=== PATIENT | female | born 1955 | race Caucasian/White ===

== ENCOUNTER 2016-07-29 11:17 | Emergency (ER) | payer OTHER ==
[~2016-07-29] VITALS: Ht 170.2 cm; Wt 56.8 kg
[~2016-07-29 11:17] MED LIST: ARIP30TA5 PO; DIVA500T69 PO; LEVO75 PO; PALI273S IM; QUET200T PO
[2016-07-29 11:18] VITALS: BP 156/75
== END 2016-07-29 12:51 | disposition left against medical advice (07) ==
LOC: EMS 11:18
DX: H92.01 Otalgia, right ear (principal); J44.9 Chronic obstructive pulmonary disease, unspecified; K21.9 Gastro-esophageal reflux disease without esophagitis; E78.00 Pure hypercholesterolemia, unspecified; F17.210 Nicotine dependence, cigarettes, uncomplicated; Z53.21 Procedure and treatment not carried out due to patient leaving prior to being seen by health care provider

== ENCOUNTER 2016-09-13 07:33 | Inpatient (IN) | payer MEDICAID, OTHER ==
[~2016-09-13] VITALS: Ht 171.4 cm; Wt 56.9 kg
[2016-09-13 08:42] LABS: BASOPHILS % (AUTO) 0.8 % (0.0-2.0); HEMATOCRIT 38.5 % (36-46); HEMOGLOBIN 12.7 g/dL (12.0-16.0); LYMPHOCYTES # (AUTO) 1.1 K/uL (1.0-4.8); LYMPHOCYTES % (AUTO) 31.2 % (22.0-44.0); MEAN CORPUSCULAR HEMOGLOBIN 30.3 pg (26.0-34.0); MEAN CORPUSCULAR VOLUME 92 fL (80-100); MONOCYTES # (AUTO) 0.4 K/uL (0.1-1.0); MONOCYTES % (AUTO) 12.7 % (2.0-9.0); NEUTROPHILS # (AUTO) 1.8 K/uL (1.8-7.7); NEUTROPHILS % (AUTO) 53.3 % (40.0-70.0); PLATELET COUNT (AUTO) 269 K/uL (150-450); RED CELL DISTRIBUTION WIDTH 14.3 % (11.5-14.5); WHITE BLOOD COUNT (AUTO) 3.4 K/uL (4.5-11.0)
[2016-09-13] MEDS ORDERED: LORazepam 2 MG TABLET PO ONE (08:45)
[2016-09-13] MEDS ORDERED: HALOPERIDOL 5 MG TABLET PO ONE (08:45)
[2016-09-13] MEDS ORDERED: LORazepam 2 MG TABLET PO PRN (08:45)
[2016-09-13] MEDS ORDERED: ZOLPIDEM TARTRATE 10 MG TABLET PO PRN (08:45)
[2016-09-13 08:53] LABS: ANION GAP 9 mmol/L (8-16); CALCIUM, TOTAL 9.3 mg/dL (8.8-10.5); CARBON DIOXIDE 29 mmol/L (22-29); CHLORIDE 104 mmol/L (98-107); CREATININE 0.64 mg/dL (0.60-1.30); GLOMERULAR FILTR. RATE CALC > 60 mL/min (>60); POTASSIUM 4.3 mmol/L (3.5-5.1); SODIUM SERUM 142 mmol/L (136-145); UREA NITROGEN, BLOOD 4 mg/dL (7-18)
[2016-09-13 08:59] LABS: ALANINE AMINOTRANSFERASE 10 U/L (12-78); ASPARTATE AMINOTRANSFERASE 13 U/L (15-37); BILIRUBIN,TOTAL 0.4 mg/dL (0.1-1.0)
[2016-09-13 10:50] VITALS: BP 137/76
[2016-09-13] MEDS ORDERED: PNEUMOCOCCAL VACCINE POLYVALENT 0.5 ML VIAL [PPSV23] IM ONE (14:30)
[2016-09-13 16:14] VITALS: BP 126/66
[2016-09-13] MEDS: DIVALPROEX SODIUM 500 MG ER TABLET PO SCH (20:58)
[2016-09-13] MEDS: QUEtiapine FUMARATE 200 MG TABLET PO SCH (20:58)
[2016-09-13] MEDS ORDERED: ACETAMINOPHEN 325 MG TABLET PO PRN (21:15)
[2016-09-13] MEDS ORDERED: IBUPROFEN 400 MG TABLET PO PRN (21:15)
[2016-09-14] MEDS: ALBUTEROL SULFATE HFA 90 MCG/PUFF 8 GM INHALER IH PRN (05:05)
[2016-09-14] MEDS: LEVOTHYROXINE SODIUM 75 MCG TABLET PO SCH (06:41)
[2016-09-14 07:22] VITALS: BP 125/65
[2016-09-14 08:34] LABS: HEMOGLOBIN A1C 5.6 % (4.5-6.2)
[2016-09-14 09:00] LABS: CHOL/HDL RATIO 4.9 (3.9-5.7); THYROID STIMULATING HORMONE 3.95 uIU/mL (0.36-3.74)
[2016-09-14] MEDS: OMEPRAZOLE 20 MG CAPSULE PO SCH (09:31)
[2016-09-14] MEDS: ARIPiprazole 15 MG TABLET PO SCH (09:31)
[2016-09-14 09:49] VITALS: BP 101/61
[2016-09-14 16:24] VITALS: BP 104/61
[2016-09-14] MEDS: DIVALPROEX SODIUM 500 MG ER TABLET PO SCH (20:20)
[2016-09-14] MEDS: QUEtiapine FUMARATE 200 MG TABLET PO SCH (20:20)
[2016-09-15 00:33] VITALS: BP 113/74
[2016-09-15] MEDS: LEVOTHYROXINE SODIUM 75 MCG TABLET PO SCH (06:25)
[2016-09-15] MEDS: OMEPRAZOLE 20 MG CAPSULE PO SCH (08:34)
[2016-09-15] MEDS: ARIPiprazole 15 MG TABLET PO SCH (08:34)
[2016-09-15 08:57] VITALS: BP 106/75
[2016-09-15] MEDS: HALOPERIDOL 5 MG TABLET PO PRN (12:05)
[2016-09-15 16:00] VITALS: BP 140/83
[2016-09-15] MEDS: DIVALPROEX SODIUM 500 MG ER TABLET PO SCH (20:21)
[2016-09-15] MEDS: QUEtiapine FUMARATE 200 MG TABLET PO SCH (20:21)
[2016-09-16] MEDS: LEVOTHYROXINE SODIUM 75 MCG TABLET PO SCH (06:04)
[2016-09-16] MEDS: ALBUTEROL SULFATE HFA 90 MCG/PUFF 8 GM INHALER IH PRN (06:13)
[2016-09-16 06:55] VITALS: BP 112/66
[2016-09-16] MEDS: ARIPiprazole 15 MG TABLET PO SCH (08:46)
[2016-09-16] MEDS: OMEPRAZOLE 20 MG CAPSULE PO SCH (08:46)
[2016-09-16 09:08] VITALS: BP 126/73
[2016-09-16] MEDS ORDERED: PALI156D IM (11:59)
[2016-09-16] MEDS: HALOPERIDOL 5 MG TABLET PO PRN (13:01)
[2016-09-16 16:00] VITALS: BP 111/64
[2016-09-16] MEDS: DIVALPROEX SODIUM 500 MG ER TABLET PO SCH (20:50)
[2016-09-16] MEDS: QUEtiapine FUMARATE 200 MG TABLET PO SCH (20:50)
[2016-09-17 05:03] VITALS: BP 106/69
[2016-09-17] MEDS: LEVOTHYROXINE SODIUM 75 MCG TABLET PO SCH (06:13)
[2016-09-17 08:38] VITALS: BP 100/63
[2016-09-17] MEDS: OMEPRAZOLE 20 MG CAPSULE PO SCH (09:16)
[2016-09-17] MEDS: ARIPiprazole 15 MG TABLET PO SCH (09:16)
[2016-09-17] MEDS: HALOPERIDOL 5 MG TABLET PO PRN (12:36)
[2016-09-17 16:11] VITALS: BP 101/65
[2016-09-17] MEDS: QUEtiapine FUMARATE 200 MG TABLET PO SCH (20:16)
[2016-09-17] MEDS: DIVALPROEX SODIUM 500 MG ER TABLET PO SCH (20:16)
[2016-09-18 00:47] VITALS: BP 101/62
[2016-09-18] MEDS: LEVOTHYROXINE SODIUM 75 MCG TABLET PO SCH (06:46)
[2016-09-18 08:29] VITALS: BP 124/69
[2016-09-18] MEDS: OMEPRAZOLE 20 MG CAPSULE PO SCH (08:48)
[2016-09-18] MEDS: ARIPiprazole 15 MG TABLET PO SCH (08:48)
[2016-09-18 16:09] VITALS: BP 103/60
[2016-09-18] MEDS: DIVALPROEX SODIUM 500 MG ER TABLET PO SCH (20:47)
[2016-09-18] MEDS: QUEtiapine FUMARATE 200 MG TABLET PO SCH (20:47)
[2016-09-19 06:16] VITALS: BP 113/72
[2016-09-19] MEDS: LEVOTHYROXINE SODIUM 75 MCG TABLET PO SCH (06:35)
[2016-09-19 08:23] VITALS: BP 101/71
[2016-09-19] MEDS: OMEPRAZOLE 20 MG CAPSULE PO SCH (08:46)
[2016-09-19] MEDS: ARIPiprazole 15 MG TABLET PO SCH (08:46)
[2016-09-19 16:36] VITALS: BP 100/67
[2016-09-19] MEDS: DIVALPROEX SODIUM 500 MG ER TABLET PO SCH (20:21)
[2016-09-19] MEDS: QUEtiapine FUMARATE 200 MG TABLET PO SCH (20:21)
[2016-09-20 00:38] VITALS: BP 110/64
[2016-09-20] MEDS: LEVOTHYROXINE SODIUM 75 MCG TABLET PO SCH (06:19)
[2016-09-20 08:36] VITALS: BP 98/63
[2016-09-20] MEDS: OMEPRAZOLE 20 MG CAPSULE PO SCH (09:24)
[2016-09-20] MEDS: ARIPiprazole 15 MG TABLET PO SCH (09:25)
[2016-09-20 16:36] VITALS: BP 128/70
[2016-09-20] MEDS: DIVALPROEX SODIUM 500 MG ER TABLET PO SCH (20:24)
[2016-09-20] MEDS: QUEtiapine FUMARATE 200 MG TABLET PO SCH (20:24)
[2016-09-21 04:01] VITALS: BP 106/60
[2016-09-21] MEDS: LEVOTHYROXINE SODIUM 75 MCG TABLET PO SCH (06:29)
[2016-09-21 08:36] VITALS: BP 101/61
[2016-09-21] MEDS: OMEPRAZOLE 20 MG CAPSULE PO SCH (09:07)
[2016-09-21] MEDS: ARIPiprazole 15 MG TABLET PO SCH (09:07)
[2016-09-21] MEDS ORDERED: MAGNESIUM HYDROXIDE SUSPENSION 30 ML UDCUP PO PRN (12:00)
[2016-09-21 16:11] VITALS: BP 119/68
[2016-09-21] MEDS: QUEtiapine FUMARATE 200 MG TABLET PO SCH (20:11)
[2016-09-21] MEDS: DIVALPROEX SODIUM 500 MG ER TABLET PO SCH (20:11)
[2016-09-22 00:10] VITALS: BP 102/78
[2016-09-22] MEDS: LEVOTHYROXINE SODIUM 75 MCG TABLET PO SCH (06:10)
[2016-09-22] MEDS: ARIPiprazole 15 MG TABLET PO SCH (09:19)
[2016-09-22] MEDS: OMEPRAZOLE 20 MG CAPSULE PO SCH (09:19)
[2016-09-22 09:29] VITALS: BP 102/62
[2016-09-22 16:22] VITALS: BP 107/66
[2016-09-22] MEDS: DIVALPROEX SODIUM 500 MG ER TABLET PO SCH (20:30)
[2016-09-22] MEDS: QUEtiapine FUMARATE 200 MG TABLET PO SCH (20:31)
[2016-09-23 02:13] VITALS: BP 108/63
[2016-09-23] MEDS: LEVOTHYROXINE SODIUM 75 MCG TABLET PO SCH (06:38)
[2016-09-23 08:31] VITALS: BP 109/67
[2016-09-23] MEDS: OMEPRAZOLE 20 MG CAPSULE PO SCH (09:13)
[2016-09-23] MEDS: ARIPiprazole 15 MG TABLET PO SCH (09:13)
[2016-09-23 16:20] VITALS: BP 106/68
[2016-09-23] MEDS: QUEtiapine FUMARATE 200 MG TABLET PO SCH (21:04)
[2016-09-23] MEDS: DIVALPROEX SODIUM 500 MG ER TABLET PO SCH (21:04)
[2016-09-24 00:33] VITALS: BP 111/62
[2016-09-24] MEDS: LEVOTHYROXINE SODIUM 75 MCG TABLET PO SCH (06:29)
[2016-09-24] MEDS: ARIPiprazole 15 MG TABLET PO SCH (08:30)
[2016-09-24] MEDS: OMEPRAZOLE 20 MG CAPSULE PO SCH (08:30)
[2016-09-24 08:56] VITALS: BP 102/52
[2016-09-24] MEDS ORDERED: OMEP20 PO (10:05)
[2016-09-24] MEDS ORDERED: ALBU8HFA4 IH (10:06)
[2016-09-24] MEDS ORDERED: ARIP30TA5 PO (10:09)
[2016-09-24] MEDS ORDERED: DIVA500T69 PO (10:09)
[2016-09-24] MEDS ORDERED: QUET200T PO (10:10)
== END 2016-09-24 15:03 | disposition home or self-care (01) | DRG 750 ==
LOC: EEVIPCON 07:35 → EMS 07:35 → B2S 09:34
PROVIDERS: ADMIT Psychiatry & Neurology Psychiatry; ATTEND Psychiatry & Neurology Psychiatry
PROC: 3E0234Z Introduction of Serum, Toxoid and Vaccine into Muscle, Percutaneous Approach (ICD-10-PCS; principal; 2016-09-13)
DX: F20.0 Paranoid schizophrenia (principal); J44.9 Chronic obstructive pulmonary disease, unspecified; F32.9 Major depressive disorder, single episode, unspecified; F17.210 Nicotine dependence, cigarettes, uncomplicated; K21.9 Gastro-esophageal reflux disease without esophagitis; F41.9 Anxiety disorder, unspecified; E78.5 Hyperlipidemia, unspecified; E03.9 Hypothyroidism, unspecified; Z71.6 Tobacco abuse counseling; Z23 Encounter for immunization
CPT/HCPCS: 83036; 84443; 87081; 90471; 99285; G0480; J3535

== ENCOUNTER 2019-11-19 16:44 | Inpatient (IN) | payer MEDICAID ==
[~2019-11-19] VITALS: Ht 165.1 cm; Wt 49.9 kg
[~2019-11-19 16:44] MED LIST changes: +ALBU8HFA4 IH; +ARIP30TA PO; -ARIP30TA5 PO; +OMEP20 PO; -PALI273S IM; -QUET200T PO
[2019-11-19] MEDS ORDERED: ZOLPIDEM TARTRATE 10 MG TABLET PO PRN (18:15)
[2019-11-19 18:40] VITALS: BP 114/67
[2019-11-19] MEDS ORDERED: DiphenhydrAMINE HCL 50 MG/ML VIAL ONE (19:52)
[2019-11-19] MEDS ORDERED: LORazepam 2 MG/ML VIAL ONE (19:52)
[2019-11-19] MEDS ORDERED: HALOPERIDOL LACTATE 5 MG/ML VIAL ONE (19:52)
[2019-11-19 19:54] VITALS: BP 116/71
[2019-11-19] MEDS ORDERED: LORazepam 2 MG/ML VIAL IM ONE (20:00)
[2019-11-19] MEDS ORDERED: DiphenhydrAMINE HCL 50 MG/ML VIAL IM ONE (20:00)
[2019-11-19] MEDS ORDERED: HALOPERIDOL LACTATE 5 MG/ML VIAL IM ONE (20:00)
[2019-11-19 20:15] VITALS: BP 139/91
[2019-11-19 21:05] VITALS: BP 135/75
[2019-11-19] MEDS ORDERED: -PHARMACY VACCINE NOTE- MISC ONE (22:00)
[2019-11-20 05:12] VITALS: BP 132/63
[2019-11-20] MEDS ORDERED: ALBUTEROL SULFATE HFA 90 MCG/PUFF 8 GM INHALER IH PRN (09:15)
[2019-11-20] MEDS ORDERED: CloNIDine HCL 0.1 MG TABLET PO PRN (09:15)
[2019-11-20] MEDS ORDERED: ACETAMINOPHEN 325 MG TABLET PO PRN (09:15)
[2019-11-20] MEDS ORDERED: LOPERAMIDE HCL 2 MG CAPSULE PO PRN (09:15)
[2019-11-20] MEDS ORDERED: NICOTINE 14 MG/24 HOUR PATCH TD PRN (09:15)
[2019-11-20] MEDS ORDERED: IBUPROFEN 400 MG TABLET PO PRN (09:15)
[2019-11-20] MEDS ORDERED: PETROLATUM,WHITE 28 GM JELLY TP PRN (09:15)
[2019-11-20] MEDS ORDERED: GuaiFENesin/D-METHORPHAN [SUGAR-FREE] 200-20MG/10 ML SYRUP UDCUP PO PRN (09:15)
[2019-11-20] MEDS ORDERED: MAGNESIUM HYDROXIDE SUSPENSION 30 ML UDCUP PO PRN (09:15)
[2019-11-20] MEDS ORDERED: ONDANSETRON HCL 4 MG TABLET PO PRN (09:15)
[2019-11-20] MEDS ORDERED: DOCUSATE SODIUM 100 MG CAPSULE PO PRN (09:15)
[2019-11-20] MEDS ORDERED: MAG HYDROX/AL HYDROX/SIMETH ES 30 ML SUSPENSION UDCUP PO PRN (09:15)
[2019-11-20 16:00] VITALS: BP 122/85
[2019-11-20] MEDS: DIVALPROEX SODIUM 500 MG DR TABLET PO SCH (16:47)
[2019-11-21 05:09] VITALS: BP 120/68
[2019-11-21] MEDS: LEVOTHYROXINE SODIUM 75 MCG TABLET PO SCH (06:01)
[2019-11-21 08:21] VITALS: BP 121/82
[2019-11-21 09:04] LABS: BASOPHILS % (AUTO) 0.5 % (0.0-2.0); EOSINOPHILS % (AUTO) 1.3 % (1.0-6.0); HEMATOCRIT 39.7 % (36-46); HEMOGLOBIN 13.1 g/dL (12.0-16.0); LYMPHOCYTES # (AUTO) 1.2 K/uL (1.0-4.8); LYMPHOCYTES % (AUTO) 40.3 % (22.0-44.0); MEAN CORPUSCULAR HEMOGLOBIN 30.9 pg (26.0-34.0); MEAN CORPUSCULAR VOLUME 94 fL (80-100); MONOCYTES # (AUTO) 0.3 K/uL (0.1-1.0); MONOCYTES % (AUTO) 9.7 % (2.0-9.0); NEUTROPHILS # (AUTO) 1.5 K/uL (1.8-7.7); NEUTROPHILS % (AUTO) 48.2 % (40.0-70.0); PLATELET COUNT (AUTO) 247 K/uL (150-450); RED BLOOD CELL COUNT(AUTO) 4.24 MIL/uL (4.00-5.20)
[2019-11-21] MEDS: DIVALPROEX SODIUM 500 MG DR TABLET PO SCH ×2 (09:05→16:44)
[2019-11-21] MEDS: OMEPRAZOLE 20 MG CAPSULE PO SCH (09:05)
[2019-11-21 09:43] LABS: ALANINE AMINOTRANSFERASE 11 U/L (12-78); ALBUMIN 3.2 g/dL (3.4-5.0); ALKALINE PHOSPHATASE 61 U/L (46-116); ANION GAP 10 mmol/L (8-16); ASPARTATE AMINOTRANSFERASE 19 U/L (15-37); BILIRUBIN,TOTAL 0.5 mg/dL (0.1-1.0); CALCIUM, TOTAL 8.6 mg/dL (8.8-10.5); CARBON DIOXIDE 28 mmol/L (22-29); CHLORIDE 102 mmol/L (98-107); CHOL/HDL RATIO 3.6 (3.9-5.7); CHOLESTEROL 173 mg/dL (131-200); CREATININE 0.65 mg/dL (0.60-1.30); FREE T4 (FREE THYROXINE) 1.23 ng/dL (0.76-1.46); GLOMERULAR FILTR. RATE CALC > 60 mL/min (>60); GLUCOSE,RANDOM 78 mg/dL (70-110); HDL CHOLESTEROL 48 mg/dL (40-60); LDL CHOL (CALC.) 111 mg/dL (0-130); SODIUM SERUM 140 mmol/L (136-145); THYROID STIMULATING HORMONE 5.22 uIU/mL (0.36-3.74); TOTAL PROTEIN, SERUM 6.8 g/dL (6.4-8.2); TRIGLYCERIDES 71 mg/dL (15-150); UREA NITROGEN, BLOOD 9 mg/dL (7-18)
[2019-11-21 13:51] LABS: HEMOGLOBIN A1C 5.8 % (3.8-5.6)
[2019-11-21 16:30] VITALS: BP 124/71
[2019-11-22] VITALS: BP 133/72
[2019-11-22] MEDS: LEVOTHYROXINE SODIUM 75 MCG TABLET PO SCH (06:42)
[2019-11-22 08:15] VITALS: BP 105/82
[2019-11-22] MEDS: DIVALPROEX SODIUM 500 MG DR TABLET PO SCH ×2 (08:34→16:08)
[2019-11-22] MEDS: OMEPRAZOLE 20 MG CAPSULE PO SCH (08:34)
[2019-11-22] MEDS: HALOPERIDOL 5 MG TABLET PO PRN (15:54)
[2019-11-22] MEDS: LORazepam 2 MG TABLET PO PRN (15:54)
[2019-11-22 16:27] VITALS: BP 126/74
[2019-11-23] VITALS: BP 93/72
[2019-11-23] MEDS: LEVOTHYROXINE SODIUM 75 MCG TABLET PO SCH (06:42)
[2019-11-23 08:16] VITALS: BP 101/56
[2019-11-23] MEDS: DIVALPROEX SODIUM 500 MG DR TABLET PO SCH ×2 (08:18→16:25)
[2019-11-23] MEDS: OMEPRAZOLE 20 MG CAPSULE PO SCH (08:18)
[2019-11-23 16:26] VITALS: BP 118/74
[2019-11-24 05:30] VITALS: BP 131/49
[2019-11-24] MEDS: LEVOTHYROXINE SODIUM 75 MCG TABLET PO SCH (06:13)
[2019-11-24 07:16] LABS: MAGNESIUM 1.9 mg/dL (1.80-2.40); PHOSPHORUS 3.5 mg/dL (2.5-4.9)
[2019-11-24 08:11] VITALS: BP 102/74
[2019-11-24 08:15] VITALS: BP 102/74
[2019-11-24] MEDS: OMEPRAZOLE 20 MG CAPSULE PO SCH (09:12)
[2019-11-24] MEDS: DIVALPROEX SODIUM 500 MG DR TABLET PO SCH ×2 (09:12→17:46)
[2019-11-24] MEDS: HALOPERIDOL 5 MG TABLET PO PRN (16:30)
[2019-11-24] MEDS: LORazepam 2 MG TABLET PO PRN (16:31)
[2019-11-24 17:51] VITALS: BP 128/65
[2019-11-25] VITALS: BP 95/54
[2019-11-25] MEDS: LEVOTHYROXINE SODIUM 75 MCG TABLET PO SCH (06:15)
[2019-11-25 08:15] VITALS: BP 104/54
[2019-11-25] MEDS: OMEPRAZOLE 20 MG CAPSULE PO SCH (08:30)
[2019-11-25] MEDS: DIVALPROEX SODIUM 500 MG DR TABLET PO SCH (08:30)
[2019-11-25] MEDS ORDERED: DIVA-112 PO (12:40)
== END 2019-11-25 13:45 | disposition home or self-care (01) | DRG 750 ==
LOC: B2S 18:17 → B3A 20:33
PROVIDERS: ADMIT Psychiatry & Neurology Psychiatry; ATTEND Psychiatry & Neurology Psychiatry
DX: F20.0 Paranoid schizophrenia (principal); E03.9 Hypothyroidism, unspecified; E78.5 Hyperlipidemia, unspecified; F10.10 Alcohol abuse, uncomplicated; J44.9 Chronic obstructive pulmonary disease, unspecified; F17.210 Nicotine dependence, cigarettes, uncomplicated; K21.9 Gastro-esophageal reflux disease without esophagitis
CPT/HCPCS: 83036; 83735; 84100; 84439; 84443; J1200; J1630; J2060

== ENCOUNTER 2021-02-27 13:02 | Inpatient (IN) | payer MEDICAID, OTHER ==
[~2021-02-27] VITALS: Ht 162.6 cm; Wt 48.8 kg
[~2021-02-27 13:02] MED LIST changes: -ALBU8HFA4 IH; -ARIP30TA PO; +DIVA-112 PO; -DIVA500T69 PO
[2021-02-27 13:55] LABS: BASOPHILS % (AUTO) 0.3 % (0.0-2.0); EOSINOPHILS % (AUTO) 0.5 % (1.0-6.0); HEMATOCRIT 36.5 % (36-46); HEMOGLOBIN 12.3 g/dL (12.0-16.0); LYMPHOCYTES # (AUTO) 1.1 K/uL (1.0-4.8); LYMPHOCYTES % (AUTO) 26.1 % (22.0-44.0); MEAN CORPUSCULAR HEMOGLOBIN 32.1 pg (26.0-34.0); MEAN CORPUSCULAR HGB CONC 33.7 G/dL (31.0-37.0); MEAN CORPUSCULAR VOLUME 95 fL (80-100); MONOCYTES # (AUTO) 0.4 K/uL (0.1-1.0); MONOCYTES % (AUTO) 10.1 % (2.0-9.0); NEUTROPHILS # (AUTO) 2.6 K/uL (1.8-7.7); PLATELET COUNT (AUTO) 251 K/uL (150-450); RED BLOOD CELL COUNT(AUTO) 3.84 MIL/uL (4.00-5.20)
[2021-02-27 14:03] LABS: ANION GAP 9 mmol/L (8-16); CALCIUM, TOTAL 8.7 mg/dL (8.8-10.5); CARBON DIOXIDE 29 mmol/L (22-29); CHLORIDE 103 mmol/L (98-107); CREATININE 0.64 mg/dL (0.60-1.30); GLOMERULAR FILTR. RATE CALC > 60 mL/min (>60); GLUCOSE,RANDOM 101 mg/dL (70-110); POTASSIUM 3.9 mmol/L (3.5-5.1); SODIUM SERUM 141 mmol/L (136-145); UREA NITROGEN, BLOOD 5 mg/dL (7-18)
[2021-02-27 14:10] LABS: ALANINE AMINOTRANSFERASE 8 U/L (12-78); ALBUMIN 3.7 g/dL (3.4-5.0); ASPARTATE AMINOTRANSFERASE 18 U/L (15-37); BILIRUBIN,TOTAL 0.5 mg/dL (0.1-1.0); TOTAL PROTEIN, SERUM 7.8 g/dL (6.4-8.2); VALPROIC ACID 13 mcg/mL (50-100)
[2021-02-27 14:24] LABS: ALKALINE PHOSPHATASE 66 U/L (46-116)
[2021-02-27 16:14] LABS: APPEARANCE,URINE CLOUDY (CLEAR); BILIRUBIN,URINE NEGATIVE (NEGATIVE); GLUCOSE, URINE (UA) NEGATIVE (NEGATIVE); KETONES,URINE NEGATIVE (NEGATIVE); LEUKOCYTE ESTERASE ,URINE SMALL (NEGATIVE); NITRATE,URINE POSITIVE (NEGATIVE); OCCULT BLOOD,URINE NEGATIVE (NEGATIVE); PROTEIN,URINE NEGATIVE (NEGATIVE); UROBILINOGEN,URINE 0.2 mg/dL (<=1.0)
[2021-02-27 16:31] LABS: AMPHET/METH SCREEN,URINE NEGATIVE (NEGATIVE); BARBITURATE SCREEN, URINE NEGATIVE (NEGATIVE); BENZODIAZEPINES SCREEN,URINE NEGATIVE (NEGATIVE); CANNABINOID SCREEN,URINE NEGATIVE (NEGATIVE); COCAINE SCREEN,URINE NEGATIVE (NEGATIVE); METHADONE SCREEN, URINE NEGATIVE (NEGATIVE); OPIATE SCREEN,URINE NEGATIVE (NEGATIVE)
[2021-02-27 16:37] LABS: PHENCYCLIDINE SCREEN,URINE NEGATIVE (NEGATIVE)
[2021-02-27 17:08] LABS: AMORPHOUS SEDIMENT,UR Few /LPF (None Seen); BACTERIA,URINE Moderate /HPF (None Seen); RBC,URINE 0-2 /HPF (0-2); SQUAMOUS EPITHELIAL CELL,UR Few /LPF (None Seen)
[2021-02-27] MEDS ORDERED: ZOLPIDEM TARTRATE 10 MG TABLET PO PRN (17:15)
[2021-02-27] MEDS: HALOPERIDOL 5 MG TABLET PO PRN (17:40)
[2021-02-27] MEDS: NITROFURANTOIN/NITROFURAN MAC 100 MG CAPSULE [MACROBID] PO SCH (17:40)
[2021-02-27] MEDS: LORazepam 2 MG TABLET PO PRN (17:40)
[2021-02-27 19:01] LABS: COVID AG,FIA SOURCE NASOPHARYNGEAL
[2021-02-28 08:05] LABS: CHOL/HDL RATIO 3.7 (3.9-5.7); CHOLESTEROL 168 mg/dL (131-200); HDL CHOLESTEROL 46 mg/dL (40-60); LDL CHOL (CALC.) 111 mg/dL (0-130); TRIGLYCERIDES 56 mg/dL (15-150)
[2021-02-28] MEDS: NITROFURANTOIN/NITROFURAN MAC 100 MG CAPSULE [MACROBID] PO SCH (08:08)
[2021-02-28] MEDS: LORazepam 2 MG TABLET PO PRN (22:20)
[2021-02-28] MEDS: HALOPERIDOL 5 MG TABLET PO PRN (22:20)
[2021-03-01] MEDS ORDERED: -PHARMACY VACCINE NOTE- MISC ONE (00:15)
[2021-03-01] MEDS ORDERED: PETROLATUM,WHITE 28 GM JELLY TP PRN (07:45)
[2021-03-01] MEDS: LEVOTHYROXINE SODIUM 75 MCG TABLET PO SCH (07:45)
[2021-03-01] MEDS ORDERED: CloNIDine HCL 0.1 MG TABLET PO PRN (07:45)
[2021-03-01] MEDS ORDERED: MAGNESIUM HYDROXIDE SUSPENSION 30 ML UDCUP PO PRN (07:45)
[2021-03-01] MEDS ORDERED: BENZOCAINE/MENTHOL LOZENGE PO PRN (07:45)
[2021-03-01] MEDS ORDERED: OMEPRAZOLE 20 MG CAPSULE PO PRN (07:45)
[2021-03-01] MEDS ORDERED: BACITRACIN 28 GM OINTMENT TP PRN (07:45)
[2021-03-01] MEDS ORDERED: MAG HYDROX/AL HYDROX/SIMETH ES 30 ML SUSPENSION UDCUP PO PRN (07:45)
[2021-03-01] MEDS ORDERED: ONDANSETRON HCL 4 MG TABLET PO PRN (07:45)
[2021-03-01] MEDS ORDERED: ALBUTEROL SULFATE HFA 90 MCG/PUFF 8 GM INHALER IH PRN (07:45)
[2021-03-01] MEDS ORDERED: LOPERAMIDE HCL 2 MG CAPSULE PO PRN (07:45)
[2021-03-01] MEDS ORDERED: DOCUSATE SODIUM 100 MG CAPSULE PO PRN (07:45)
[2021-03-01] MEDS ORDERED: ACETAMINOPHEN 325 MG TABLET PO PRN (07:45)
[2021-03-01 08:31] VITALS: BP 116/71
[2021-03-01] MEDS: NITROFURANTOIN/NITROFURAN MAC 100 MG CAPSULE [MACROBID] PO SCH ×2 (09:05→16:06)
[2021-03-01] MEDS: RisperiDONE 2 MG TABLET PO SCH (16:06)
[2021-03-01] MEDS: DIVALPROEX SODIUM 500 MG DR TABLET PO SCH (16:06)
[2021-03-02] MEDS: IBUPROFEN 600 MG TABLET PO PRN (00:39)
[2021-03-02 00:41] VITALS: BP 110/72
[2021-03-02] MEDS: LEVOTHYROXINE SODIUM 75 MCG TABLET PO SCH (06:23)
[2021-03-02 08:13] VITALS: BP 144/77
[2021-03-02 08:27] LABS: MAGNESIUM 1.1 mg/dL (1.80-2.40); PHOSPHORUS 3.9 mg/dL (2.5-4.9)
[2021-03-02] MEDS: NITROFURANTOIN/NITROFURAN MAC 100 MG CAPSULE [MACROBID] PO SCH ×2 (08:47→16:13)
[2021-03-02] MEDS: THIAMINE 100 MG TABLET PO SCH (08:47)
[2021-03-02] MEDS: RisperiDONE 2 MG TABLET PO SCH ×2 (08:47→16:13)
[2021-03-02] MEDS: MULTIVITAMINS WITH MINERALS, THERAPEUTIC TABLET PO SCH (08:47)
[2021-03-02] MEDS: FOLIC ACID 1 MG TABLET PO SCH (08:47)
[2021-03-02] MEDS: DIVALPROEX SODIUM 500 MG DR TABLET PO SCH ×2 (08:47→16:13)
[2021-03-02 16:06] VITALS: BP 133/75
[2021-03-03 00:33] VITALS: BP 118/73
[2021-03-03] MEDS: LEVOTHYROXINE SODIUM 75 MCG TABLET PO SCH (06:53)
[2021-03-03 08:21] VITALS: BP 116/70
[2021-03-03] MEDS: FOLIC ACID 1 MG TABLET PO SCH (08:28)
[2021-03-03] MEDS: NITROFURANTOIN/NITROFURAN MAC 100 MG CAPSULE [MACROBID] PO SCH ×2 (08:28→16:48)
[2021-03-03] MEDS: THIAMINE 100 MG TABLET PO SCH (08:28)
[2021-03-03] MEDS: DIVALPROEX SODIUM 500 MG DR TABLET PO SCH ×2 (08:28→16:47)
[2021-03-03] MEDS: MULTIVITAMINS WITH MINERALS, THERAPEUTIC TABLET PO SCH (08:28)
[2021-03-03] MEDS: RisperiDONE 2 MG TABLET PO SCH ×2 (08:28→16:48)
[2021-03-03] MEDS ORDERED: MAGNESIUM OXIDE 400 MG TABLET PO ONE (09:00)
[2021-03-03] MEDS ORDERED: INSULIN LISPRO 100 UNITS/ML SQ ONE (09:15)
[2021-03-03] MEDS ORDERED: INSULIN GLARGINE,HUM.REC.ANLOG 100 UNITS/ML SQ SCH (09:15)
[2021-03-03 16:18] VITALS: BP 136/69
[2021-03-03] MEDS ORDERED: CIPROFLOXACIN HCL 250 MG TABLET PO SCH (20:45)
[2021-03-04 01:42] VITALS: BP 130/78
[2021-03-04] MEDS: LEVOTHYROXINE SODIUM 75 MCG TABLET PO SCH (06:20)
[2021-03-04 08:05] VITALS: BP 122/70
[2021-03-04] MEDS: DIVALPROEX SODIUM 500 MG DR TABLET PO SCH ×2 (08:30→16:44)
[2021-03-04] MEDS: FOLIC ACID 1 MG TABLET PO SCH (08:30)
[2021-03-04] MEDS: CIPROFLOXACIN HCL 250 MG TABLET PO SCH ×2 (08:30→16:44)
[2021-03-04] MEDS: MULTIVITAMINS WITH MINERALS, THERAPEUTIC TABLET PO SCH (08:30)
[2021-03-04] MEDS: THIAMINE 100 MG TABLET PO SCH (08:31)
[2021-03-04] MEDS: RisperiDONE 2 MG TABLET PO SCH ×2 (08:31→16:44)
[2021-03-04 10:58] LABS: MAGNESIUM 1.8 mg/dL (1.80-2.40); PHOSPHORUS 4.3 mg/dL (2.5-4.9)
[2021-03-04] MEDS: LORazepam 2 MG TABLET PO PRN (11:35)
[2021-03-04 16:08] VITALS: BP 129/79
[2021-03-05 04:51] VITALS: BP 120/72
[2021-03-05] MEDS: LEVOTHYROXINE SODIUM 75 MCG TABLET PO SCH (06:35)
[2021-03-05] MEDS: THIAMINE 100 MG TABLET PO SCH (08:51)
[2021-03-05] MEDS: FOLIC ACID 1 MG TABLET PO SCH (08:51)
[2021-03-05] MEDS: MULTIVITAMINS WITH MINERALS, THERAPEUTIC TABLET PO SCH (08:51)
[2021-03-05] MEDS: RisperiDONE 2 MG TABLET PO SCH ×2 (08:51→16:15)
[2021-03-05] MEDS: CIPROFLOXACIN HCL 250 MG TABLET PO SCH ×2 (08:51→16:15)
[2021-03-05] MEDS: DIVALPROEX SODIUM 500 MG DR TABLET PO SCH ×2 (08:51→16:15)
[2021-03-05 09:01] VITALS: BP 112/61
[2021-03-05 16:08] VITALS: BP 122/61
[2021-03-06 05:06] VITALS: BP 119/76
[2021-03-06] MEDS: LEVOTHYROXINE SODIUM 75 MCG TABLET PO SCH (06:16)
[2021-03-06 08:24] VITALS: BP 110/61
[2021-03-06] MEDS: RisperiDONE 2 MG TABLET PO SCH ×2 (08:47→16:18)
[2021-03-06] MEDS: FOLIC ACID 1 MG TABLET PO SCH (08:47)
[2021-03-06] MEDS: MULTIVITAMINS WITH MINERALS, THERAPEUTIC TABLET PO SCH (08:47)
[2021-03-06] MEDS: DIVALPROEX SODIUM 500 MG DR TABLET PO SCH ×2 (08:47→16:18)
[2021-03-06] MEDS: THIAMINE 100 MG TABLET PO SCH (08:47)
[2021-03-06] MEDS: CIPROFLOXACIN HCL 250 MG TABLET PO SCH ×2 (08:47→16:18)
[2021-03-06 16:05] VITALS: BP 148/95
[2021-03-07 00:51] VITALS: BP 128/76
[2021-03-07] MEDS: LEVOTHYROXINE SODIUM 75 MCG TABLET PO SCH (06:22)
[2021-03-07] MEDS: DIVALPROEX SODIUM 500 MG DR TABLET PO SCH ×2 (08:16→16:46)
[2021-03-07] MEDS: FOLIC ACID 1 MG TABLET PO SCH (08:16)
[2021-03-07] MEDS: RisperiDONE 2 MG TABLET PO SCH ×2 (08:16→16:46)
[2021-03-07] MEDS: THIAMINE 100 MG TABLET PO SCH (08:16)
[2021-03-07] MEDS: MULTIVITAMINS WITH MINERALS, THERAPEUTIC TABLET PO SCH (08:16)
[2021-03-07 08:34] VITALS: BP 119/74
[2021-03-07 16:16] VITALS: BP 108/63
[2021-03-08 00:29] VITALS: BP 102/76
[2021-03-08] MEDS: LEVOTHYROXINE SODIUM 75 MCG TABLET PO SCH (06:40)
[2021-03-08] MEDS: FOLIC ACID 1 MG TABLET PO SCH (08:04)
[2021-03-08] MEDS: RisperiDONE 2 MG TABLET PO SCH ×2 (08:04→16:02)
[2021-03-08] MEDS: MULTIVITAMINS WITH MINERALS, THERAPEUTIC TABLET PO SCH (08:04)
[2021-03-08] MEDS: DIVALPROEX SODIUM 500 MG DR TABLET PO SCH ×2 (08:04→16:02)
[2021-03-08] MEDS: THIAMINE 100 MG TABLET PO SCH (08:04)
[2021-03-08 08:36] VITALS: BP 100/64
[2021-03-08 16:06] VITALS: BP 113/62
[2021-03-08] MEDS: LORazepam 2 MG TABLET PO PRN (17:24)
[2021-03-08] MEDS: HALOPERIDOL 5 MG TABLET PO PRN (17:24)
[2021-03-09 00:49] VITALS: BP 110/72
[2021-03-09] MEDS: LEVOTHYROXINE SODIUM 75 MCG TABLET PO SCH (06:17)
[2021-03-09 08:14] VITALS: BP 114/74
[2021-03-09] MEDS: RisperiDONE 2 MG TABLET PO SCH ×2 (08:27→17:12)
[2021-03-09] MEDS: DIVALPROEX SODIUM 500 MG DR TABLET PO SCH ×2 (08:27→17:12)
[2021-03-09] MEDS: FOLIC ACID 1 MG TABLET PO SCH (08:27)
[2021-03-09] MEDS: MULTIVITAMINS WITH MINERALS, THERAPEUTIC TABLET PO SCH (08:27)
[2021-03-09] MEDS: THIAMINE 100 MG TABLET PO SCH (08:28)
[2021-03-09 16:27] VITALS: BP_SYST 101; BP_SYST 127; BP_DIAS 68; BP_DIAS 76
[2021-03-10 00:49] VITALS: BP 107/62
[2021-03-10] MEDS: LEVOTHYROXINE SODIUM 75 MCG TABLET PO SCH (06:07)
[2021-03-10 08:23] VITALS: BP 117/59
[2021-03-10] MEDS: THIAMINE 100 MG TABLET PO SCH (08:31)
[2021-03-10] MEDS: DIVALPROEX SODIUM 500 MG DR TABLET PO SCH ×2 (08:31→16:48)
[2021-03-10] MEDS: MULTIVITAMINS WITH MINERALS, THERAPEUTIC TABLET PO SCH (08:31)
[2021-03-10] MEDS: FOLIC ACID 1 MG TABLET PO SCH (08:31)
[2021-03-10] MEDS: RisperiDONE 2 MG TABLET PO SCH ×2 (08:31→16:48)
[2021-03-10 16:14] VITALS: BP 123/72
[2021-03-11 01:54] VITALS: BP 114/71
[2021-03-11] MEDS: LEVOTHYROXINE SODIUM 75 MCG TABLET PO SCH (06:24)
[2021-03-11] MEDS: MULTIVITAMINS WITH MINERALS, THERAPEUTIC TABLET PO SCH (08:06)
[2021-03-11] MEDS: DIVALPROEX SODIUM 500 MG DR TABLET PO SCH ×2 (08:06→16:05)
[2021-03-11] MEDS: THIAMINE 100 MG TABLET PO SCH (08:06)
[2021-03-11] MEDS: RisperiDONE 2 MG TABLET PO SCH ×2 (08:06→16:05)
[2021-03-11] MEDS: FOLIC ACID 1 MG TABLET PO SCH (08:07)
[2021-03-11 08:38] VITALS: BP 102/59
[2021-03-11 16:21] VITALS: BP 103/68
[2021-03-12 00:07] VITALS: BP 100/66
[2021-03-12] MEDS: LEVOTHYROXINE SODIUM 75 MCG TABLET PO SCH (06:32)
[2021-03-12] MEDS: DIVALPROEX SODIUM 500 MG DR TABLET PO SCH ×2 (08:36→16:20)
[2021-03-12] MEDS: RisperiDONE 2 MG TABLET PO SCH ×2 (08:36→16:20)
[2021-03-12] MEDS: MULTIVITAMINS WITH MINERALS, THERAPEUTIC TABLET PO SCH (08:36)
[2021-03-12 08:45] VITALS: BP 102/66
[2021-03-12] MEDS: HALOPERIDOL 5 MG TABLET PO PRN (10:52)
[2021-03-12] MEDS ORDERED: HALOPERIDOL LACTATE 5 MG/ML VIAL IM ONE (11:30)
[2021-03-12] MEDS ORDERED: DiphenhydrAMINE HCL 50 MG/ML VIAL IM ONE (11:30)
[2021-03-12] MEDS ORDERED: LORazepam 2 MG/ML VIAL IM ONE (11:30)
[2021-03-13] VITALS: BP 100/63
[2021-03-13] MEDS: LEVOTHYROXINE SODIUM 75 MCG TABLET PO SCH (06:52)
[2021-03-13] MEDS: MULTIVITAMINS WITH MINERALS, THERAPEUTIC TABLET PO SCH (08:15)
[2021-03-13] MEDS: RisperiDONE 2 MG TABLET PO SCH ×2 (08:15→17:02)
[2021-03-13] MEDS: DIVALPROEX SODIUM 500 MG DR TABLET PO SCH ×2 (08:15→17:02)
[2021-03-13 08:24] VITALS: BP 110/59
[2021-03-13 16:15] VITALS: BP 123/80
[2021-03-13] MEDS: HALOPERIDOL 5 MG TABLET PO PRN (18:50)
[2021-03-13] MEDS: IBUPROFEN 600 MG TABLET PO PRN (18:50)
[2021-03-14 00:27] VITALS: BP 114/76
[2021-03-14] MEDS: LEVOTHYROXINE SODIUM 75 MCG TABLET PO SCH (06:25)
[2021-03-14 08:39] VITALS: BP 120/74
[2021-03-14] MEDS: RisperiDONE 2 MG TABLET PO SCH ×2 (08:46→16:02)
[2021-03-14] MEDS: DIVALPROEX SODIUM 500 MG DR TABLET PO SCH ×2 (08:46→16:02)
[2021-03-14] MEDS: MULTIVITAMINS WITH MINERALS, THERAPEUTIC TABLET PO SCH (09:13)
[2021-03-14] MEDS: HALOPERIDOL 5 MG TABLET PO PRN (16:02)
[2021-03-14 16:23] VITALS: BP 129/61
[2021-03-15 00:19] VITALS: BP 117/68
[2021-03-15] MEDS: LEVOTHYROXINE SODIUM 75 MCG TABLET PO SCH (06:30)
[2021-03-15 08:24] VITALS: BP 117/65
[2021-03-15] MEDS: MULTIVITAMINS WITH MINERALS, THERAPEUTIC TABLET PO SCH (09:09)
[2021-03-15] MEDS: RisperiDONE 2 MG TABLET PO SCH ×2 (09:09→16:01)
[2021-03-15] MEDS: DIVALPROEX SODIUM 500 MG DR TABLET PO SCH ×2 (09:09→16:01)
[2021-03-15 16:10] VITALS: BP 119/67
[2021-03-16] MEDS: LEVOTHYROXINE SODIUM 75 MCG TABLET PO SCH (06:52)
[2021-03-16 08:15] VITALS: BP 120/72
[2021-03-16 08:30] LABS: COVID AG,FIA SOURCE NASAL SWAB
[2021-03-16] MEDS: MULTIVITAMINS WITH MINERALS, THERAPEUTIC TABLET PO SCH (08:43)
[2021-03-16] MEDS: RisperiDONE 2 MG TABLET PO SCH (08:43)
[2021-03-16] MEDS: DIVALPROEX SODIUM 500 MG DR TABLET PO SCH (08:43)
[2021-03-16] MEDS: HALOPERIDOL 5 MG TABLET PO PRN (10:50)
[2021-03-16] MEDS ORDERED: RISP2TAB45 PO (12:09)
[2021-03-16] MEDS ORDERED: BENZ1TAB10 PO ×2 (13:15→13:16)
[2021-03-16] MEDS ORDERED: BENZTROPINE MESYLATE 1 MG TABLET PO SCH (17:00)
== END 2021-03-16 13:00 | disposition home or self-care (01) | DRG 750 ==
LOC: EMS 13:02 → B3A 02-28 18:21
PROVIDERS: ADMIT Psychiatry & Neurology Psychiatry; ATTEND Psychiatry & Neurology Psychiatry
DX: F20.0 Paranoid schizophrenia (principal); E46 Unspecified protein-calorie malnutrition; E03.9 Hypothyroidism, unspecified; J44.9 Chronic obstructive pulmonary disease, unspecified; K21.9 Gastro-esophageal reflux disease without esophagitis; E78.00 Pure hypercholesterolemia, unspecified; K59.00 Constipation, unspecified; N39.0 Urinary tract infection, site not specified; Z20.822 Contact with and (suspected) exposure to COVID-19; F32.9 Major depressive disorder, single episode, unspecified; Z87.891 Personal history of nicotine dependence; Z68.1 Body mass index [BMI] 19.9 or less, adult; Z79.899 Other long term (current) drug therapy
CPT/HCPCS: 80053; 80061; 80164; 81001; 83735; 84100; 85025; 87077; 87086; 87186; 99285; G0480; J1200; J1630; J1815; J2060

== ENCOUNTER 2021-03-30 14:12 | Inpatient (IN) | payer MEDICAID, OTHER ==
[~2021-03-30] VITALS: Ht 162.6 cm; Wt 46.3 kg
[~2021-03-30 14:12] MED LIST changes: +BENZ1TAB10 PO; -OMEP20 PO; +RISP2TAB45 PO
[2021-03-30] MEDS ORDERED: HALOPERIDOL 5 MG TABLET PO ONE (17:15)
[2021-03-30] MEDS ORDERED: LORazepam 1 MG TABLET PO ONE (17:15)
[2021-03-30 17:31] LABS: BASOPHILS % (AUTO) 1.1 % (0.0-2.0); EOSINOPHILS % (AUTO) 0.1 % (1.0-6.0); HEMOGLOBIN 11.9 g/dL (12.0-16.0); LYMPHOCYTES # (AUTO) 1.2 K/uL (1.0-4.8); LYMPHOCYTES % (AUTO) 24.5 % (22.0-44.0); MEAN CORPUSCULAR HEMOGLOBIN 32.8 pg (26.0-34.0); MEAN CORPUSCULAR VOLUME 97 fL (80-100); MONOCYTES # (AUTO) 0.7 K/uL (0.1-1.0); MONOCYTES % (AUTO) 13.9 % (2.0-9.0); NEUTROPHILS # (AUTO) 2.9 K/uL (1.8-7.7); NEUTROPHILS % (AUTO) 60.4 % (40.0-70.0); PLATELET COUNT (AUTO) 270 K/uL (150-450); RED BLOOD CELL COUNT(AUTO) 3.63 MIL/uL (4.00-5.20); RED CELL DISTRIBUTION WIDTH 15.1 % (11.5-14.5)
[2021-03-30 17:44] LABS: ANION GAP 15 mmol/L (8-16); CARBON DIOXIDE 25 mmol/L (22-29); CHLORIDE 103 mmol/L (98-107); CREATININE 1.27 mg/dL (0.60-1.30); GLOMERULAR FILTR. RATE CALC 42 mL/min (>60); GLUCOSE,RANDOM 185 mg/dL (70-110); POTASSIUM 3.9 mmol/L (3.5-5.1); SODIUM SERUM 143 mmol/L (136-145); UREA NITROGEN, BLOOD 25 mg/dL (7-18)
[2021-03-30 17:45] LABS: ALANINE AMINOTRANSFERASE 11 U/L (12-78); ALBUMIN 3.6 g/dL (3.4-5.0); ALKALINE PHOSPHATASE 56 U/L (46-116); ASPARTATE AMINOTRANSFERASE 15 U/L (15-37); BILIRUBIN,TOTAL 0.5 mg/dL (0.1-1.0); TOTAL PROTEIN, SERUM 7.8 g/dL (6.4-8.2); VALPROIC ACID 17 mcg/mL (50-100)
[2021-03-30 18:03] LABS: COVID AG,FIA SOURCE NASOPHARYNGEAL
[2021-03-30] MEDS ORDERED: ZOLPIDEM TARTRATE 10 MG TABLET PO PRN (20:15)
[2021-03-30] MEDS ORDERED: LORazepam 2 MG TABLET PO PRN (20:15)
[2021-03-31 00:55] VITALS: BP 124/64
[2021-03-31 01:04] LABS: APPEARANCE,URINE CLOUDY (CLEAR); GLUCOSE, URINE (UA) NEGATIVE (NEGATIVE); KETONES,URINE TRACE mg/dL (NEGATIVE); LEUKOCYTE ESTERASE ,URINE SMALL (NEGATIVE); NITRATE,URINE NEGATIVE (NEGATIVE); OCCULT BLOOD,URINE NEGATIVE (NEGATIVE); PROTEIN,URINE POS 1+ (NEGATIVE)
[2021-03-31 01:09] LABS: BILIRUBIN,URINE PRELIM. POSITIVE (NEGATIVE)
[2021-03-31 01:10] LABS: AMPHET/METH SCREEN,URINE NEGATIVE (NEGATIVE); BARBITURATE SCREEN, URINE NEGATIVE (NEGATIVE); BENZODIAZEPINES SCREEN,URINE NEGATIVE (NEGATIVE); CANNABINOID SCREEN,URINE NEGATIVE (NEGATIVE); COCAINE SCREEN,URINE NEGATIVE (NEGATIVE); METHADONE SCREEN, URINE NEGATIVE (NEGATIVE); OPIATE SCREEN,URINE NEGATIVE (NEGATIVE)
[2021-03-31 01:11] LABS: PHENCYCLIDINE SCREEN,URINE NEGATIVE (NEGATIVE)
[2021-03-31 01:16] LABS: BACTERIA,URINE Many /HPF (None Seen); RBC,URINE 0-2 /HPF (0-2); WBC,URINE 26-50 /HPF (0-5)
[2021-03-31] MEDS ORDERED: ALBUTEROL SULFATE HFA 90 MCG/PUFF 8 GM INHALER IH PRN (06:30)
[2021-03-31] MEDS ORDERED: MAGNESIUM HYDROXIDE SUSPENSION 30 ML UDCUP PO PRN (06:30)
[2021-03-31] MEDS ORDERED: BENZOCAINE/MENTHOL LOZENGE PO PRN (06:30)
[2021-03-31] MEDS ORDERED: IBUPROFEN 600 MG TABLET PO PRN (06:30)
[2021-03-31] MEDS ORDERED: ONDANSETRON HCL 4 MG TABLET PO PRN (06:30)
[2021-03-31] MEDS ORDERED: PETROLATUM,WHITE 28 GM JELLY TP PRN (06:30)
[2021-03-31] MEDS ORDERED: CloNIDine HCL 0.1 MG TABLET PO PRN (06:30)
[2021-03-31] MEDS ORDERED: ACETAMINOPHEN 325 MG TABLET PO PRN (06:30)
[2021-03-31] MEDS ORDERED: DOCUSATE SODIUM 100 MG CAPSULE PO PRN (06:30)
[2021-03-31] MEDS ORDERED: MAG HYDROX/AL HYDROX/SIMETH ES 30 ML SUSPENSION UDCUP PO PRN (06:30)
[2021-03-31] MEDS ORDERED: BACITRACIN 28 GM OINTMENT TP PRN (06:30)
[2021-03-31] MEDS ORDERED: OMEPRAZOLE 20 MG CAPSULE PO PRN (06:30)
[2021-03-31] MEDS ORDERED: LOPERAMIDE HCL 2 MG CAPSULE PO PRN (06:30)
[2021-03-31 08:30] VITALS: BP 135/66
[2021-03-31] MEDS: CEPHALEXIN MONOHYDRATE 500 MG CAPSULE PO SCH ×2 (10:20→16:43)
[2021-03-31] MEDS: LEVOTHYROXINE SODIUM 75 MCG TABLET PO SCH (10:20)
[2021-03-31] MEDS: DIVALPROEX SODIUM 500 MG ER TABLET PO SCH (16:42)
[2021-03-31] MEDS: BENZTROPINE MESYLATE 1 MG TABLET PO SCH (16:42)
[2021-03-31] MEDS: RisperiDONE 2 MG TABLET PO SCH (16:43)
[2021-03-31 17:18] VITALS: BP 142/86
[2021-03-31] MEDS: HALOPERIDOL 5 MG TABLET PO PRN (20:47)
[2021-04-01] MEDS: LEVOTHYROXINE SODIUM 75 MCG TABLET PO SCH (07:03)
[2021-04-01 10:21] VITALS: BP 104/60
[2021-04-01] MEDS: DIVALPROEX SODIUM 500 MG ER TABLET PO SCH ×2 (10:40→16:38)
[2021-04-01] MEDS: RisperiDONE 2 MG TABLET PO SCH ×2 (10:40→16:38)
[2021-04-01] MEDS: BENZTROPINE MESYLATE 1 MG TABLET PO SCH ×2 (10:40→16:38)
[2021-04-01] MEDS: CEPHALEXIN MONOHYDRATE 500 MG CAPSULE PO SCH ×2 (10:40→16:38)
[2021-04-01 15:31] VITALS: BP 136/83
[2021-04-01] MEDS: HALOPERIDOL 5 MG TABLET PO PRN (22:17)
[2021-04-02] MEDS: LEVOTHYROXINE SODIUM 75 MCG TABLET PO SCH (06:47)
[2021-04-02] MEDS: DIVALPROEX SODIUM 500 MG ER TABLET PO SCH ×2 (07:51→16:40)
[2021-04-02] MEDS: RisperiDONE 2 MG TABLET PO SCH ×2 (07:51→16:40)
[2021-04-02] MEDS: CEPHALEXIN MONOHYDRATE 500 MG CAPSULE PO SCH ×2 (07:51→16:41)
[2021-04-02] MEDS: BENZTROPINE MESYLATE 1 MG TABLET PO SCH ×3 (07:51→16:41)
[2021-04-02] MEDS: HALOPERIDOL 5 MG TABLET PO PRN ×3 (07:51→19:32)
[2021-04-02 09:27] VITALS: BP 99/45
[2021-04-02 11:00] VITALS: BP 116/59
[2021-04-02 16:00] VITALS: BP 123/76
[2021-04-03] MEDS: LEVOTHYROXINE SODIUM 75 MCG TABLET PO SCH (06:37)
[2021-04-03] MEDS: CEPHALEXIN MONOHYDRATE 500 MG CAPSULE PO SCH ×2 (08:16→16:07)
[2021-04-03] MEDS: BENZTROPINE MESYLATE 1 MG TABLET PO SCH ×2 (08:16→16:07)
[2021-04-03] MEDS: DIVALPROEX SODIUM 500 MG ER TABLET PO SCH ×2 (08:16→16:08)
[2021-04-03] MEDS: RisperiDONE 2 MG TABLET PO SCH ×2 (08:16→16:08)
[2021-04-03 08:35] VITALS: BP 117/67
[2021-04-03 16:17] VITALS: BP 114/60
[2021-04-04] MEDS: LEVOTHYROXINE SODIUM 75 MCG TABLET PO SCH (06:42)
[2021-04-04] MEDS: RisperiDONE 2 MG TABLET PO SCH ×2 (08:00→16:36)
[2021-04-04] MEDS: DIVALPROEX SODIUM 500 MG ER TABLET PO SCH ×2 (08:00→16:36)
[2021-04-04] MEDS: BENZTROPINE MESYLATE 1 MG TABLET PO SCH ×2 (08:00→16:36)
[2021-04-04] MEDS: CEPHALEXIN MONOHYDRATE 500 MG CAPSULE PO SCH ×2 (08:00→16:36)
[2021-04-04 08:40] VITALS: BP 135/67
[2021-04-04 11:25] LABS: COVID AG,FIA SOURCE NASOPHARYNGEAL
[2021-04-04 16:19] VITALS: BP 111/60
[2021-04-04] MEDS: HALOPERIDOL 5 MG TABLET PO PRN (16:36)
[2021-04-05 06:36] LABS: HEMOGLOBIN A1C 5.3 % (3.8-5.6)
[2021-04-05 06:37] LABS: MAGNESIUM 1.9 mg/dL (1.80-2.40); PHOSPHORUS 4.5 mg/dL (2.5-4.9)
[2021-04-05] MEDS: LEVOTHYROXINE SODIUM 75 MCG TABLET PO SCH (06:50)
[2021-04-05 08:27] VITALS: BP 98/70
[2021-04-05] MEDS: BENZTROPINE MESYLATE 1 MG TABLET PO SCH ×2 (10:10→17:19)
[2021-04-05] MEDS: RisperiDONE 2 MG TABLET PO SCH ×2 (10:10→17:18)
[2021-04-05] MEDS: CEPHALEXIN MONOHYDRATE 500 MG CAPSULE PO SCH ×2 (10:11→17:19)
[2021-04-05] MEDS: DIVALPROEX SODIUM 500 MG ER TABLET PO SCH ×2 (10:11→17:19)
[2021-04-05 16:40] VITALS: BP 128/96
[2021-04-05] MEDS: HALOPERIDOL 5 MG TABLET PO PRN (17:19)
[2021-04-06] MEDS: LEVOTHYROXINE SODIUM 75 MCG TABLET PO SCH (06:14)
[2021-04-06 08:26] VITALS: BP 128/68
[2021-04-06] MEDS: CEPHALEXIN MONOHYDRATE 500 MG CAPSULE PO SCH ×2 (10:18→16:45)
[2021-04-06] MEDS: RisperiDONE 2 MG TABLET PO SCH ×2 (10:18→16:45)
[2021-04-06] MEDS: BENZTROPINE MESYLATE 1 MG TABLET PO SCH ×2 (10:18→16:45)
[2021-04-06] MEDS: DIVALPROEX SODIUM 500 MG ER TABLET PO SCH ×2 (10:19→16:45)
[2021-04-06] MEDS ORDERED: INFLUENZA VIRUS VACCINE QVS 2021-22 (6MO+)/PF 60 MCG/0.5 ML SYRINGE IM. ONE (14:00)
[2021-04-06 16:08] VITALS: BP 111/74
[2021-04-06] MEDS: HALOPERIDOL 5 MG TABLET PO PRN (16:45)
[2021-04-07] MEDS: LEVOTHYROXINE SODIUM 75 MCG TABLET PO SCH (06:19)
[2021-04-07 08:16] VITALS: BP 87/58
[2021-04-07] MEDS: CEPHALEXIN MONOHYDRATE 500 MG CAPSULE PO SCH (08:35)
[2021-04-07] MEDS: RisperiDONE 2 MG TABLET PO SCH (09:47)
[2021-04-07] MEDS: DIVALPROEX SODIUM 500 MG ER TABLET PO SCH (09:47)
[2021-04-07] MEDS: BENZTROPINE MESYLATE 1 MG TABLET PO SCH (09:47)
== END 2021-04-07 15:00 | disposition home or self-care (01) | DRG 750 ==
LOC: EMS 14:12 → 3EC 03-31 00:38
PROVIDERS: ADMIT Psychiatry & Neurology Psychiatry; ATTEND Psychiatry & Neurology Psychiatry
DX: F20.0 Paranoid schizophrenia (principal); E46 Unspecified protein-calorie malnutrition; E03.9 Hypothyroidism, unspecified; E78.00 Pure hypercholesterolemia, unspecified; J44.9 Chronic obstructive pulmonary disease, unspecified; K21.9 Gastro-esophageal reflux disease without esophagitis; Z20.822 Contact with and (suspected) exposure to COVID-19; K59.00 Constipation, unspecified; F32.A Depression, unspecified; N39.0 Urinary tract infection, site not specified; F17.210 Nicotine dependence, cigarettes, uncomplicated; Z68.1 Body mass index [BMI] 19.9 or less, adult; Z91.14 Patient's other noncompliance with medication regimen; Z23 Encounter for immunization; Z79.899 Other long term (current) drug therapy; Z56.0 Unemployment, unspecified; Z71.6 Tobacco abuse counseling
CPT/HCPCS: 80053; 80061; 80164; 81001; 83036; 83735; 84100; 85025; 87077; 87086; 90686; 99285; G0480

== ENCOUNTER 2021-08-23 10:08 | Inpatient (IN) | payer MEDICAID, OTHER ==
[~2021-08-23] VITALS: Ht 162.6 cm; Wt 46.5 kg
[~2021-08-23 10:08] MED LIST changes: -BENZ1TAB10 PO; +BENZ1TAB96 PO
[2021-08-23] MEDS ORDERED: LORazepam 2 MG/ML VIAL ONE (10:22)
[2021-08-23] MEDS ORDERED: DiphenhydrAMINE HCL 50 MG/ML VIAL ONE (10:23)
[2021-08-23] MEDS ORDERED: HALOPERIDOL LACTATE 5 MG/ML VIAL ONE (10:23)
[2021-08-23] MEDS ORDERED: HALOPERIDOL LACTATE 5 MG/ML VIAL IM ONE (10:30)
[2021-08-23] MEDS ORDERED: LORazepam 2 MG/ML VIAL IM ONE (10:30)
[2021-08-23] MEDS ORDERED: DiphenhydrAMINE HCL 50 MG/ML VIAL IM ONE (10:30)
[2021-08-23 11:25] LABS: COVID AG,FIA SOURCE NASAL SWAB
[2021-08-23] MEDS ORDERED: LORazepam 2 MG TABLET PO PRN (11:30)
[2021-08-23] MEDS ORDERED: ZOLPIDEM TARTRATE 10 MG TABLET PO PRN (11:30)
[2021-08-23] MEDS ORDERED: HALOPERIDOL 5 MG TABLET PO PRN (11:30)
[2021-08-23 11:31] LABS: HEMATOCRIT 31.5 % (36-46); HEMOGLOBIN 10.9 g/dL (12.0-16.0); LYMPHOCYTES # (AUTO) 0.8 K/uL (1.0-4.8); LYMPHOCYTES % (AUTO) 31.5 % (22.0-44.0); MEAN CORPUSCULAR HEMOGLOBIN 31.4 pg (26.0-34.0); MEAN CORPUSCULAR HGB CONC 34.6 G/dL (31.0-37.0); MEAN CORPUSCULAR VOLUME 91 fL (80-100); MONOCYTES # (AUTO) 0.2 K/uL (0.1-1.0); MONOCYTES % (AUTO) 9.1 % (2.0-9.0); NEUTROPHILS # (AUTO) 1.4 K/uL (1.8-7.7); NEUTROPHILS % (AUTO) 57.4 % (40.0-70.0); PLATELET COUNT (AUTO) 241 K/uL (150-450); RED BLOOD CELL COUNT(AUTO) 3.46 MIL/uL (4.00-5.20); RED CELL DISTRIBUTION WIDTH 15.5 % (11.5-14.5)
[2021-08-23 11:52] LABS: ANION GAP 8 mmol/L (8-16); CALCIUM, TOTAL 8.4 mg/dL (8.8-10.5); CARBON DIOXIDE 28 mmol/L (22-29); CHLORIDE 103 mmol/L (98-107); CREATININE 0.76 mg/dL (0.60-1.30); GLOMERULAR FILTR. RATE CALC > 60 mL/min (>60); GLUCOSE,RANDOM 111 mg/dL (70-110); POTASSIUM 3.4 mmol/L (3.5-5.1); SODIUM SERUM 139 mmol/L (136-145); UREA NITROGEN, BLOOD 11 mg/dL (7-18)
[2021-08-23 11:57] LABS: ALANINE AMINOTRANSFERASE 8 U/L (12-78); ALBUMIN 3.2 g/dL (3.4-5.0); ALKALINE PHOSPHATASE 51 U/L (46-116); ASPARTATE AMINOTRANSFERASE 17 U/L (15-37); BILIRUBIN,TOTAL 0.4 mg/dL (0.1-1.0); TOTAL PROTEIN, SERUM 6.6 g/dL (6.4-8.2)
[2021-08-23 15:59] VITALS: BP 133/77
[2021-08-23 16:29] VITALS: BP 133/77
[2021-08-24] MEDS: CALCIPOTRIENE 0.005% 60 GM CREAM TP SCH ×2 (08:39→16:14)
[2021-08-24 16:15] VITALS: BP 145/83
[2021-08-24] MEDS ORDERED: CloNIDine HCL 0.1 MG TABLET PO PRN (21:45)
[2021-08-24] MEDS ORDERED: MAG HYDROX/AL HYDROX/SIMETH ES 30 ML SUSPENSION UDCUP PO PRN (21:45)
[2021-08-24] MEDS ORDERED: LOPERAMIDE HCL 2 MG CAPSULE PO PRN (21:45)
[2021-08-24] MEDS ORDERED: ALBUTEROL SULFATE HFA 90 MCG/PUFF 8 GM INHALER IH PRN (21:45)
[2021-08-24] MEDS ORDERED: PETROLATUM,WHITE 28 GM JELLY TP PRN (21:45)
[2021-08-24] MEDS ORDERED: DOCUSATE SODIUM 100 MG CAPSULE PO PRN (21:45)
[2021-08-24] MEDS ORDERED: MAGNESIUM HYDROXIDE SUSPENSION 30 ML UDCUP PO PRN (21:45)
[2021-08-24] MEDS ORDERED: IBUPROFEN 600 MG TABLET PO PRN (21:45)
[2021-08-24] MEDS ORDERED: OMEPRAZOLE 20 MG CAPSULE PO PRN (21:45)
[2021-08-24] MEDS ORDERED: ONDANSETRON HCL 4 MG TABLET PO PRN (21:45)
[2021-08-24] MEDS ORDERED: BENZOCAINE/MENTHOL LOZENGE PO PRN (21:45)
[2021-08-24] MEDS ORDERED: BACITRACIN 28 GM OINTMENT TP PRN (21:45)
[2021-08-24] MEDS ORDERED: ACETAMINOPHEN 325 MG TABLET PO PRN (21:45)
[2021-08-25 06:38] VITALS: BP 138/82
[2021-08-25] MEDS: LEVOTHYROXINE SODIUM 75 MCG TABLET PO SCH (06:58)
[2021-08-25] MEDS: RisperiDONE 3 MG TABLET PO SCH ×2 (08:31→16:21)
[2021-08-25] MEDS: CALCIPOTRIENE 0.005% 60 GM CREAM TP SCH ×2 (08:31→16:22)
[2021-08-25] MEDS: DIVALPROEX SODIUM 500 MG DR TABLET PO SCH ×2 (08:31→16:21)
[2021-08-25 16:20] VITALS: BP 136/77
[2021-08-26 06:21] VITALS: BP 130/68
[2021-08-26] MEDS: LEVOTHYROXINE SODIUM 75 MCG TABLET PO SCH (06:42)
[2021-08-26 08:25] VITALS: BP 118/78
[2021-08-26] MEDS: CALCIPOTRIENE 0.005% 60 GM CREAM TP SCH ×2 (08:56→17:04)
[2021-08-26] MEDS: DIVALPROEX SODIUM 500 MG DR TABLET PO SCH ×2 (08:56→17:04)
[2021-08-26] MEDS: RisperiDONE 3 MG TABLET PO SCH ×2 (08:56→17:04)
[2021-08-26 16:23] VITALS: BP 106/66
[2021-08-27 05:28] VITALS: BP 110/65
[2021-08-27] MEDS: LEVOTHYROXINE SODIUM 75 MCG TABLET PO SCH (06:30)
[2021-08-27 08:17] VITALS: BP 122/64
[2021-08-27] MEDS: DIVALPROEX SODIUM 500 MG DR TABLET PO SCH ×2 (08:21→16:49)
[2021-08-27] MEDS: RisperiDONE 3 MG TABLET PO SCH ×2 (08:21→16:49)
[2021-08-27] MEDS: CALCIPOTRIENE 0.005% 60 GM CREAM TP SCH ×2 (08:21→16:50)
[2021-08-27 16:17] VITALS: BP 113/69
[2021-08-28 05:35] VITALS: BP 126/65
[2021-08-28] MEDS: LEVOTHYROXINE SODIUM 75 MCG TABLET PO SCH (06:35)
[2021-08-28 08:14] VITALS: BP 118/73
[2021-08-28] MEDS: CALCIPOTRIENE 0.005% 60 GM CREAM TP SCH ×2 (09:05→16:16)
[2021-08-28] MEDS: DIVALPROEX SODIUM 500 MG DR TABLET PO SCH ×2 (09:05→16:16)
[2021-08-28] MEDS: RisperiDONE 3 MG TABLET PO SCH ×2 (09:05→16:16)
[2021-08-28 16:22] VITALS: BP 121/60
[2021-08-29 06:52] VITALS: BP 118/70
[2021-08-29] MEDS: LEVOTHYROXINE SODIUM 75 MCG TABLET PO SCH (07:01)
[2021-08-29 07:10] LABS: ANION GAP 1 mmol/L (8-16); CALCIUM, TOTAL 8.8 mg/dL (8.8-10.5); CARBON DIOXIDE 37 mmol/L (22-29); CHLORIDE 100 mmol/L (98-107); GLOMERULAR FILTR. RATE CALC > 60 mL/min (>60); GLUCOSE,RANDOM 80 mg/dL (70-110); POTASSIUM 3.7 mmol/L (3.5-5.1); SODIUM SERUM 138 mmol/L (136-145); UREA NITROGEN, BLOOD 15 mg/dL (7-18)
[2021-08-29] MEDS: CALCIPOTRIENE 0.005% 60 GM CREAM TP SCH ×2 (09:16→16:09)
[2021-08-29] MEDS: DIVALPROEX SODIUM 500 MG DR TABLET PO SCH ×2 (09:16→16:09)
[2021-08-29] MEDS: RisperiDONE 3 MG TABLET PO SCH ×2 (09:16→16:09)
[2021-08-29 10:36] VITALS: BP 100/50
[2021-08-29 16:16] VITALS: BP 125/78
[2021-08-30 05:41] VITALS: BP 121/64
[2021-08-30] MEDS: LEVOTHYROXINE SODIUM 75 MCG TABLET PO SCH (06:53)
[2021-08-30 08:25] VITALS: BP 107/62
[2021-08-30] MEDS: RisperiDONE 3 MG TABLET PO SCH ×2 (08:53→16:47)
[2021-08-30] MEDS: CALCIPOTRIENE 0.005% 60 GM CREAM TP SCH ×2 (08:53→17:00)
[2021-08-30] MEDS: DIVALPROEX SODIUM 500 MG DR TABLET PO SCH ×2 (08:54→16:47)
[2021-08-31 03:35] VITALS: BP 118/62
[2021-08-31] MEDS: LEVOTHYROXINE SODIUM 75 MCG TABLET PO SCH (06:55)
[2021-08-31] MEDS: CALCIPOTRIENE 0.005% 60 GM CREAM TP SCH ×2 (08:27→16:06)
[2021-08-31] MEDS: RisperiDONE 3 MG TABLET PO SCH ×2 (08:27→16:06)
[2021-08-31] MEDS: DIVALPROEX SODIUM 500 MG DR TABLET PO SCH ×2 (08:27→16:06)
[2021-08-31 16:05] VITALS: BP 121/67
[2021-09-01 05:16] VITALS: BP 105/64
[2021-09-01] MEDS: LEVOTHYROXINE SODIUM 75 MCG TABLET PO SCH (06:57)
[2021-09-01 08:12] VITALS: BP 109/62
[2021-09-01] MEDS: RisperiDONE 3 MG TABLET PO SCH ×2 (08:22→16:06)
[2021-09-01] MEDS: DIVALPROEX SODIUM 500 MG DR TABLET PO SCH ×2 (08:22→16:06)
[2021-09-01] MEDS: CALCIPOTRIENE 0.005% 60 GM CREAM TP SCH ×2 (08:22→16:06)
[2021-09-01 16:14] VITALS: BP 135/76
[2021-09-02 03:46] VITALS: BP 122/70
[2021-09-02] MEDS: LEVOTHYROXINE SODIUM 75 MCG TABLET PO SCH (06:35)
[2021-09-02] MEDS: RisperiDONE 3 MG TABLET PO SCH ×2 (08:08→16:08)
[2021-09-02] MEDS: CALCIPOTRIENE 0.005% 60 GM CREAM TP SCH ×2 (08:08→16:08)
[2021-09-02] MEDS: DIVALPROEX SODIUM 500 MG DR TABLET PO SCH ×2 (08:08→16:08)
[2021-09-02 08:12] VITALS: BP 110/69
[2021-09-02 16:16] VITALS: BP 111/60
[2021-09-03 06:09] VITALS: BP 121/68
[2021-09-03] MEDS: LEVOTHYROXINE SODIUM 75 MCG TABLET PO SCH (06:50)
[2021-09-03] MEDS: RisperiDONE 3 MG TABLET PO SCH ×2 (08:12→16:44)
[2021-09-03] MEDS: DIVALPROEX SODIUM 500 MG DR TABLET PO SCH ×2 (08:12→16:44)
[2021-09-03 08:46] VITALS: BP 105/58
[2021-09-03] MEDS: CALCIPOTRIENE 0.005% 60 GM CREAM TP SCH ×2 (09:08→16:43)
[2021-09-03 16:19] VITALS: BP 109/65
[2021-09-04 05:43] VITALS: BP 119/70
[2021-09-04] MEDS: LEVOTHYROXINE SODIUM 75 MCG TABLET PO SCH (06:18)
[2021-09-04] MEDS: DIVALPROEX SODIUM 500 MG DR TABLET PO SCH ×2 (08:04→17:00)
[2021-09-04] MEDS: RisperiDONE 3 MG TABLET PO SCH ×2 (08:04→17:00)
[2021-09-04] MEDS: CALCIPOTRIENE 0.005% 60 GM CREAM TP SCH ×2 (08:04→16:26)
[2021-09-04 08:14] VITALS: BP 100/64
[2021-09-04 11:40] VITALS: BP 110/70
[2021-09-04 16:27] VITALS: BP 116/64
[2021-09-05 04:44] VITALS: BP 112/70
[2021-09-05] MEDS: LEVOTHYROXINE SODIUM 75 MCG TABLET PO SCH (06:52)
[2021-09-05] MEDS: DIVALPROEX SODIUM 500 MG DR TABLET PO SCH (08:01)
[2021-09-05] MEDS: RisperiDONE 3 MG TABLET PO SCH (08:01)
[2021-09-05] MEDS: CALCIPOTRIENE 0.005% 60 GM CREAM TP SCH (08:02)
[2021-09-05 08:08] VITALS: BP 106/63
[2021-09-05] MEDS ORDERED: DIVA-112 PO (09:53)
[2021-09-05] MEDS ORDERED: RISP3TAB63 PO (09:53)
== END 2021-09-05 14:01 | disposition home or self-care (01) | DRG 750 ==
LOC: EMS 10:14 → B3A 13:54
PROVIDERS: ADMIT Psychiatry & Neurology Psychiatry; ATTEND Psychiatry & Neurology Psychiatry
DX: F20.0 Paranoid schizophrenia (principal); E46 Unspecified protein-calorie malnutrition; E78.00 Pure hypercholesterolemia, unspecified; J44.9 Chronic obstructive pulmonary disease, unspecified; Z20.822 Contact with and (suspected) exposure to COVID-19; F41.9 Anxiety disorder, unspecified; E03.9 Hypothyroidism, unspecified; K21.9 Gastro-esophageal reflux disease without esophagitis; K59.00 Constipation, unspecified; Z68.1 Body mass index [BMI] 19.9 or less, adult; Z72.0 Tobacco use; Z71.6 Tobacco abuse counseling
CPT/HCPCS: 80048; 80053; 85025; 87081; 99285; G0480; J1200; J1630; J2060; Q0162

== ENCOUNTER 2021-12-05 14:12 | Emergency (ER) | payer MEDICAID, OTHER ==
[~2021-12-05 14:12] MED LIST changes: -BENZ1TAB96 PO; -RISP2TAB45 PO; +RISP3TAB63 PO
== END 2021-12-05 15:56 | disposition left against medical advice (07) ==
LOC: EMS 15:03
DX: Z53.21 Procedure and treatment not carried out due to patient leaving prior to being seen by health care provider (principal)